=== PATIENT | male | born 1995 | race Caucasian/White ===

== ENCOUNTER 2019-10-24 13:41 | Emergency (ER) | payer BC ==
[2019-10-24 13:45] VITALS: RESP 18
--- NOTE | 2019-10-24 14:07 | ED ---
Lower Extremity Injury HPI - General Chief Complaint: Extremity Injury, Lower Stated Complaint: R Foot Injury Time Seen by Provider: 10/24/19 13:58 Source: patient Mode of arrival: wheelchair Limitations: no limitations - History of Present Illness Initial Comments: Patient is a 24-year-old male presenting to the emergency department with a chief complaint right foot pain. Patient reports incident occurred about one hour ago when he accidentally walked into a ditch. Patient reports most the pain is located along the lateral aspect of the right foot where there is some swelling. Patient reports there is a small region of ecchymosis thereto. Reports the pain is somewhat minimal at this time. Patient denies any numbness or tingling. States the pain is exacerbated with weightbearing and alleviated at rest. Denies taking medication to alleviate symptoms. - Related Data Allergies Allergy/AdvReac Type Severity Reaction Status Date / Time Latex, Natural Rubber Allergy Unknown Verified 10/24/19 13:45 Review of Systems ROS Statement: Those systems with pertinent positive or pertinent negative responses have been documented in the HPI. ROS Other: All systems not noted in ROS Statement are negative. Past Medical History Past Medical History: No Reported History History of Any Multi-Drug Resistant Organisms: None Reported Past Surgical History: Orthopedic Surgery, Tonsillectomy Past Psychological History: No Psychological Hx Reported Smoking Status: Never smoker Past Alcohol Use History: Daily Past Drug Use History: None Reported General Exam Limitations: no limitations General appearance: alert, in no apparent distress Head exam: Present: atraumatic, normocephalic, normal inspection Eye exam: Present: normal appearance, PERRL, EOMI Pupils: Present: normal accommodation ENT exam: Present: normal exam, normal oropharynx Neck exam: Present: normal inspection, full ROM. Absent: tenderness Respiratory exam: Present: normal lung sounds bilaterally. Absent: respiratory distress Cardiovascular Exam: Present: regular rate, normal rhythm, normal heart sounds Extremities exam: Present: full ROM, tenderness (Tenderness in the region of swelling), normal capillary refill, other (+2 dorsalis pedis and posterior tibialis bilaterally.). Absent: normal inspection (Mild swelling noted along the lateral aspect of her right foot.) Back exam: Present: normal inspection, full ROM. Absent: tenderness Neurological exam: Present: alert, oriented X3 Psychiatric exam: Present: normal affect, normal mood Skin exam: Present: warm, dry, intact, normal color Course Vital Signs 10/24/19 13:43 Temperature 98.5 F Pulse Rate 106 H Respiratory 18 Rate Blood Pressure 130/72 O2 Sat by Pulse 100 Oximetry Medical Decision Making - Medical Decision Making patient is a 24-year-old male presenting to the emergency department with the chief complaint of right foot pain. On exam patient has mild swelling. He is neurovascularly intact in the right foot. X-ray reveals a fifth metatarsal transverse fracture with 5 mm of separation. Patient was offered analgesia, he declined. Posterior splint was applied. Patient advised to not bear any weight on the right foot and use crutches. Patient given a prescription for crutches. Patient advised to follow-up with an enrollment specialist. Strict return parameters were thoroughly discussed the patient is worsening agreeable. Case discussed physician. Disposition Clinical Impression: Fracture of fifth metatarsal bone of right foot, Right foot injury, Swelling of right foot Disposition: HOME SELF-CARE Condition: Stable Instructions (If sedation given, give patient instructions): Foot Fracture in Adults (ED) Additional Instructions: Follow-up with enrollment specialist. Do not bear any weight on the right leg. Elevate the injured foot and alternate between Tylenol and Motrin for pain control. Apply ice compress to minimize his symptoms. Return to emergency department if symptoms worsen. Is patient prescribed a controlled substance at d/c from ED?: No Referrals: Ynes Parr MD [Primary Care Provider] - 1-2 days Eduardo Willis MD [STAFF PHYSICIAN] - 1-2 days Time of Disposition: 14:56
--- NOTE | 2019-10-24 14:17 | XR ---
EXAMINATION TYPE: XR ankle complete RT DATE OF EXAM: 10/24/2019 COMPARISON: NONE HISTORY: Pain TECHNIQUE: 3 views FINDINGS: Ankle mortise is anatomic. There is an acute transverse fracture across the base of the fif th metatarsal. There is separation of the fragment 5 mm. There is no dislocation. IMPRESSION: Acute fracture base of fifth metatarsal.
--- NOTE | 2019-10-24 14:19 | XR ---
EXAMINATION TYPE: XR foot complete RT DATE OF EXAM: 10/24/2019 COMPARISON: NONE HISTORY: Pain TECHNIQUE: 3 views FINDINGS: There is transverse fracture across the base of the fifth metatarsal with separation 5 mm. There is no dislocation. The toes appear intact. Hindfoot is intact. IMPRESSION: Acute fracture of base of the fifth metatarsal.
[2019-10-24 15:23] VITALS: BP 128/71; PULSE 77; TEMP 99.1
== END 2019-10-24 15:05 | disposition home or self-care (01) ==
LOC: EC 13:41
DX: S92.351A Displaced fracture of fifth metatarsal bone, right foot, initial encounter for closed fracture (principal); Z91.040 Latex allergy status; Z98.890 Other specified postprocedural states; W22.09XA Striking against other stationary object, initial encounter; Y93.01 Activity, walking, marching and hiking; Y92.89 Other specified places as the place of occurrence of the external cause
CPT/HCPCS: 29515; 99283